=== PATIENT | female | born 1935 | race Caucasian/White ===

== ENCOUNTER → 2016-10-27 | Outpatient (CLI) | payer OTHER ==
[~2016-10-27] MED LIST: ASPEC325 PO; ASPI81TA28 PO; CHOL1000 PO; CRD30 PO; HYZ/50125 PO; LEVO-217 PO; LEVO125T4 PO; OXYC-57 PO; PANT40TA PO; RXC5 PO
--- NOTE | 2016-10-28 14:34 | MAMMOGRAPHY REPORT ---
BILATERAL DIGITAL SCREENING MAMMOGRAM TOMOSYNTHESIS WITH CAD: 10/27/2016 CLINICAL HISTORY: Routine screening. TECHNIQUE: Breast tomosynthesis in addition to standard 2D mammography was performed. Current study was also evaluated with a Computer Aided Detection (CAD) system. COMPARISON: Comparison is made to exams dated: 09/01/2015 mammogram, 08/25/2015 mammogram, 08/19/2014 ma mmogram, 06/12/2013 mammogram - [facility], 03/14/2006 mammogram, and 02/18/2005 lona mogram. BREAST COMPOSITION: There are scattered areas of fibroglandular density in both breasts. FINDINGS: There are numerous similar appearing groupings of coarse heterogeneous microcalcifications scattered bilaterally. No new suspicious spiculated or irregular mass, architectural distortion or c luster of suspicious microcalcifications is seen. IMPRESSION: ACR BI-RADS CATEGORY 1: NEGATIVE There is no mammographic evidence of malignancy. A 1 year screening mammogram is recommended. The pa tient will receive written notification of the results. Approximately 10% of breast cancers are not detected with mammography. A negative mammographic report should not delay biopsy if a clinically suggestive mass is present. Katerin Lynn M.D. ay/:10/27/2016 16:41:46 Watch Adjuster: Kurt LEÓN(R)(M), [facility] letter sent: Normal 1/2 BI-RADS Code: ACR BI-RADS Category 1: Negative
== END | disposition home or self-care (01) ==
LOC: C.MAMM 16:16
PROVIDERS: ATTEND Family Medicine
DX: Z12.31 Encounter for screening mammogram for malignant neoplasm of breast (principal)

== ENCOUNTER 2016-11-19 08:27 | Inpatient (IN) | payer OTHER ==
[2016-11-09 09:47] VITALS: BMI 25.0
--- NOTE | 2016-11-09 10:24 | PAT Medication Instructions ---
Service Date Nov 09, 2016. Current Home Medication List Aspirin (Aspirin Ec), 81 MG PO NOON Cholecalciferol (Vitamin D3), 1 TAB PO NOON Hctz/Losartan (Hyzaar 12.5MG/50MG), 1 TAB PO NOON Levothyroxine Sodium (Levothyroxine Sodium), 1 TAB PO QAM Medication Instructions For Your Scheduled Surgery - Check with surgeon for instructions: Aspirin (Aspirin Ec), 81 MG PO NOON - Hold the following medications the morning of surgery: Hctz/Losartan (Hyzaar 12.5MG/50MG), 1 TAB PO NOON Cholecalciferol (Vitamin D3), 1 TAB PO NOON - Take the following medications the morning of surgery with a sip of water: Levothyroxine Sodium (Levothyroxine Sodium), 1 TAB PO QAM If you have any questions please call us at [phone] (Margie Anna PA-C) or [phone] or [phone]
--- NOTE | 2016-11-09 11:23 | DIAGNOSTIC IMAGING REPORT ---
CHEST PREADMISSION(PA/LAT) HISTORY:81 yearsFemalepreadmission study. COMPARISON: Chest radiograph 03/26/2015 TECHNIQUE: Frontal and lateral views of the chest. FINDINGS: Cardiomediastinal and hilar silhouettes are within normal limits. There is atherosclerosis of the aorta. No pneumothorax, pleural effusion, focal airspace consolidation or overt edema. There is minimal linear subsegmental atelectasis and/or pleural parenchymal scarring of the lingula. There is gentle convex-right curvature of the midthoracic spine. Degenerative changes are seen within the bilateral shoulders. IMPRESSION: No acute cardiopulmonary process. The above report was generated using voice recognition software. It may contain grammatical, syntax or spelling errors. Electronically signed by: Roshan Sotomayor M.D. 11/09/2016 11:21 AM Dictated Date/Time: 11/09/2016 11:20 AM
[2016-11-09 11:30] LABS: BASO % 0.3 %; BASO ABS # 0.02 K/uL (0-0.2); COMPLETE YES; EOS % 1.4 %; HEMATOCRIT 34.5 % (37-47); IG% 0.2 %; LYMPH % 21.7 %; LYMPH ABS # 1.36 K/uL (1.2-3.4); MEAN CELL VOLUME 93.5 fL (80-100); MEAN CORPUSCULAR HEMOGLOBIN 32.2 pg (25-34); MEAN CORPUSCULAR HGB CONC 34.5 g/dl (32-36); MEAN PLATELET VOLUME 10.5 fL (7.4-10.4); MONO % 8.9 %; NEUT % 67.5 %; PLATELET COUNT 235 K/uL (130-400); RED BLOOD COUNT 3.69 M/uL (4.2-5.4); WHITE BLOOD COUNT 6.26 K/uL (4.8-10.8)
[2016-11-09 11:37] LABS: BUN/CREATININE RATIO 19.1 (10-20); CALCIUM 9.9 mg/dl (8.5-10.1); CREATININE 0.76 mg/dl (0.60-1.20)
[2016-11-09 11:39] LABS: INR 1.1 (0.9-1.1); PARTIAL THROMBOPLASTIN RATIO 1.1
[2016-11-09 12:01] LABS: URINE APPEARANCE CLEAR (CLEAR); URINE BILIRUBIN NEG (NEG); URINE COLOR YELLOW; URINE NITRITE NEG (NEG); URINE SPECIFIC GRAVITY 1.017 (1.000-1.030); UROBILINOGEN NEG (NEG)
[2016-11-09 12:08] LABS: MANUAL MICROSCOPIC REQUIRED? NO; REVIEW REQ? NO
[~2016-11-19] VITALS: Ht 172.7 cm; Wt 74.6 kg
[2016-11-19] VITALS (7 sets, daily range): BP systolic 114–148; BP diastolic 56–80; PULSE 60–76; TEMP 36.4–36.8; O2SAT 94–100; Ht 172.7 cm; Wt 74.6 kg
[~2016-11-19 08:27] MED LIST changes: +ACETAMINOPHEN 500 MG TAB PO SCH; -ASPEC325 PO; +BUPIVACAINE 0.25% 30 ML VIAL ONE; +BUPIVACAINE 0.5 % 5 MG/1 ML PF 10ML VIAL ONE; +CEFAZOLIN 2000 MG/60 ML D5W 60 ML IV SCH; -CRD30 PO; +FAMOTIDINE 20 MG TAB PO SCH; +GABAPENTIN 300 MG CAP PO SCH; +LACTATED RINGER'S 1000ML 1,000 ML IV SCH; +LACTATED RINGER'S 1000ML IV SCH; -LEVO-217 PO; -OXYC-57 PO; -PANT40TA PO; +ROPIVACAINE 5MG/ML 30 ML 150 MG, BUPIVACAINE/EPINEPHR 0.5% MPF 30 ML, KETOROLAC TROMETH... INFIL SCH; -RXC5 PO
[2016-11-19] MEDS ORDERED: HYZ/50125 PO (08:50)
--- NOTE | 2016-11-19 09:29 | History & Physical Bridge Note ---
H&P Re-Evaluation Bridge Note: I have examined the patient, reviewed the History & Physical and in the interval since the performance of the History & Physical I have noted the following changes of clinical significance: No changes noted
--- NOTE | 2016-11-19 09:30 | History and Physical ---
History & Physical Date Nov 19, 2016. Chief Complaint Osteoarthritis Left Knee History of Present Illness The patient is a 81 year old female with complaints of chronic left knee pain Past Medical/Surgical History hypertension, hypothyroid Additional History Hepatic Disease: No Endocrine Disorder: No Kidney Disease: No Hypertension: No Heart Disease: No Bleeding Tendencies: No Infectious Diseases: No Allergies Coded Allergies: Latex1 -Allergic Contact Dermititis (Verified Allergy, Unknown, ITCHING, ) POLLEN (Verified Allergy, Unknown, HAYFEVER, 11/19/16) Home Medications Scheduled Aspirin (Aspirin Ec), 81 MG PO NOON Cholecalciferol (Vitamin D3), 1 TAB PO NOON Levothyroxine Sodium (Levothyroxine Sodium), 1 TAB PO QAM Scheduled PRN Hctz/Losartan (Hyzaar 12.5MG/50MG), 1 TAB PO BID PRN for daily Physical Examination Skin: warm/dry, no rash Eyes: normal inspection, EOMI, sclerae normal ENT: normal ENT inspection, pharynx normal Head: normocephalic, atraumatic Neck: supple, no adenopathy, trachea midline Respiratory/Chest: lungs clear, normal breath sounds, no respiratory distress Cardiovascular: regular rate, rhythm, no edema, no murmur Abdomen / GI: normal bowel sounds, non tender Back: normal inspection Extremities: normal inspection, normal range of motion Neurologic/Psych: no motor/sensory deficits, alert, normal reflexes, oriented x 3 Diagnosis Osteoarthritis Left Knee Plan of Treatment Left total knee
[2016-11-19] MEDS ORDERED: FENTANYL CITRATE INJ 50 MCG/1 ML 2 ML VIAL ONE ×2 (10:30→13:03)
[2016-11-19] MEDS ORDERED: MIDAZOLAM HCL 1 MG/ML 2ML VIAL ONE (10:30)
[2016-11-19] MEDS ORDERED: FENTANYL CITRATE INJ 50 MCG/1 ML 2 ML VIAL IV PRN (11:15)
[2016-11-19] MEDS ORDERED: ATROPINE SULFATE 0.1 MG/ML 5ML SYR IV PRN (11:15)
[2016-11-19] MEDS ORDERED: HYDROmorphone INJ 1 MG/ML SYR IV PRN (11:15)
[2016-11-19] MEDS ORDERED: EpHEDrine SULFATE INJ 50 MG/ML AMP IV PRN (11:15)
[2016-11-19] MEDS ORDERED: DEXAMETHASONE SOD INJ 4 MG/ML VIAL IV PRN (11:15)
[2016-11-19] MEDS ORDERED: ONDANSETRON INJ 2 MG/ML 2 ML VIAL IV PRN ×2 (11:15→14:15)
[2016-11-19] MEDS: TRANEXAMIC ACID INJ 1,000 MG in SODIUM CHLORIDE 0.9% 100ML 100 ML IV SCH ×2 (11:36→16:19)
[2016-11-19] MEDS ORDERED: ORTHO JOINT ANESTHETIC ONE (12:07)
[2016-11-19] MEDS ORDERED: BACITRACIN 50000 UNIT VIAL ONE (12:07)
[2016-11-19] MEDS ORDERED: NEOSTIGMINE METHYLSULFATE 5 MG/5 ML SYR ONE (13:48)
[2016-11-19] MEDS ORDERED: GLYCOPYRROLATE INJ 0.2 MG/ML VIAL ONE (13:48)
[2016-11-19] MEDS ORDERED: PROPOFOL IV EMULSION 10 MG/ML 20 ML VIAL IV ONE (13:48)
[2016-11-19] MEDS ORDERED: ONDANSETRON INJ 2 MG/ML 2 ML VIAL ONE (13:48)
[2016-11-19] MEDS ORDERED: ROCURONIUM BROMIDE 10 MG/ML 5 ML VIAL ONE (13:48)
[2016-11-19] MEDS ORDERED: LIDOCAINE HCL 2% 2 ML VIAL (20MG/ML) ONE (13:48)
[2016-11-19] MEDS ORDERED: EpHEDrine SULFATE INJ 50 MG/ML AMP ONE (13:48)
--- NOTE | 2016-11-19 14:02 | [facility] Post Operative Brief Note ---
Immediate Operative Summary Operative Date Nov 19, 2016. Pre-Operative Diagnosis Left knee Osteoarthritis Post-Operative Diagnosis same Procedure(s) Performed Left Total Knee Arthroplasty Surgeon Dr. Bryce Handy Water Pollution Specialist Surgeon(s) Prashant Abarca PA-C Estimated Blood Loss 20ML Findings as above Specimens a. Left knee bone and tissue Complication(s) None Disposition Recovery Room / PACU
[2016-11-19] MEDS ORDERED: SOD PHOSPHATE/SOD BIPHOSPHATE ENEMA 132 ML BTL PR PRN (14:15)
[2016-11-19] MEDS ORDERED: METOCLOPRAMIDE HCL INJ 5 MG/ML 2 ML VIAL IV PRN (14:15)
[2016-11-19] MEDS ORDERED: OXYCODONE HCL IR 5 MG TAB (IMMEDIATE RELEASE) PO PRN (14:15)
[2016-11-19] MEDS ORDERED: SILVER SULFADIAZINE 1% CR 50 GM JAR EXT PRN (14:15)
[2016-11-19] MEDS ORDERED: LOSARTAN/HCTZ 50-12.5 EA TAB PO PRN (14:15)
[2016-11-19] MEDS ORDERED: MoRPHine SULFATE 2 MG/ML CARP IV PRN (14:15)
[2016-11-19] MEDS ORDERED: BISACODYL 10 MG SUPP PR PRN (14:15)
[2016-11-19] MEDS ORDERED: MAGNESIUM HYDROXIDE SUSP 30 ML UDC PO PRN (14:15)
--- NOTE | 2016-11-19 14:43 | DIAGNOSTIC IMAGING REPORT ---
LEFT KNEE 1 OR 2 VIEWS ROUTINE CLINICAL HISTORY: AP/LATERAL IN PACU LEFT KNEE COMPARISON: None. DISCUSSION: Anatomic alignment status post total left knee replacement. Good contact between prosthetic and underlying bone. Surgical drains are in position. Expected soft tissue postoperative change IMPRESSION: Anatomic alignment status post total left knee replacement The above report was generated using voice recognition software. It may contain grammatical, syntax or spelling errors. Electronically signed by: Joselito Dash M.D. 11/19/2016 2:42 PM Dictated Date/Time: 11/19/2016 2:42 PM
--- NOTE | 2016-11-19 14:52 | Anesthesiology Progress Note ---
Anesthesia Post Op Note Date & Time Nov 19, 2016 at 14:52 Vital Signs Pain Intensity: 0 Vital Signs Past 12 Hours Date Time Temp Pulse Resp B/P (MAP) Pulse Ox O2 Delivery O2 Flow Rate FiO2 11/19/16 14:50 36.3 59 16 130/57 100 Nasal Cannula 2 11/19/16 14:40 56 16 131/58 99 Nasal Cannula 2 11/19/16 14:30 57 16 110/72 100 Nasal Cannula 2 11/19/16 14:20 57 16 139/62 100 Oxymask 5 11/19/16 14:11 36.2 52 16 148/61 100 Oxymask 10 11/19/16 12:11 66 20 140/72 (94) 100 Mask 10 11/19/16 08:51 36.8 76 16 133/80 94 Room Air Notes Mental Status: alert / awake / arousable, participated in evaluation Pt Amnestic to Procedure: Yes Nausea / Vomiting: adequately controlled Pain: adequately controlled Airway Patency, RR, SpO2: stable & adequate BP & HR: stable & adequate Hydration State: stable & adequate Anesthetic Complications: no major complications apparent
[2016-11-19] MEDS ORDERED: NURSING VERBAL MED ORDER ONE (16:15)
[2016-11-19] MEDS: SODIUM CHLORIDE 0.9% 1000ML 1,000 ML IV SCH (16:41)
[2016-11-19] MEDS: KETOROLAC TROMETHAMINE 15 MG/ML VIAL IV. SCH (18:11)
[2016-11-19] MEDS: CEFAZOLIN IV 1,000 MG in DEXTROSE 5% 50ML 50 ML IV SCH (21:07)
[2016-11-19] MEDS: LOSARTAN/HCTZ 50-12.5 EA TAB PO SCH (21:08)
[2016-11-19] MEDS: DOCUSATE SODIUM 100 MG CAP PO SCH (21:08)
[2016-11-19] MEDS: SENNA 8.6 MG TAB PO SCH (21:10)
[2016-11-19] MEDS: ASPIRIN 325 MG ECTAB PO SCH (21:11)
[2016-11-19] MEDS: ACETAMINOPHEN IV 1,000 MG in EMPTY BAG 0 ML IV SCH (21:53)
[2016-11-20] VITALS (7 sets, daily range): BP systolic 116–137; BP diastolic 66–77; PULSE 64–89; TEMP 36.4–36.9; O2SAT 92–99
[2016-11-20] MEDS: KETOROLAC TROMETHAMINE 15 MG/ML VIAL IV. SCH ×5 (00:03→23:47)
[2016-11-20] MEDS: CEFAZOLIN IV 1,000 MG in DEXTROSE 5% 50ML 50 ML IV SCH (03:51)
[2016-11-20] MEDS: SODIUM CHLORIDE 0.9% 1000ML 1,000 ML IV SCH ×2 (03:51→09:44)
[2016-11-20] MEDS: ACETAMINOPHEN IV 1,000 MG in EMPTY BAG 0 ML IV SCH ×3 (06:09→22:24)
[2016-11-20] MEDS: LEVOTHYROXINE 125 MCG TAB PO SCH (06:10)
[2016-11-20 06:26] LABS: HEMATOCRIT 29.3 % (37-47); MEAN CELL VOLUME 92.1 fL (80-100); MEAN CORPUSCULAR HEMOGLOBIN 30.5 pg (25-34); MEAN CORPUSCULAR HGB CONC 33.1 g/dl (32-36); PLATELET COUNT 242 K/uL (130-400); RED BLOOD COUNT 3.18 M/uL (4.2-5.4); WHITE BLOOD COUNT 11.82 K/uL (4.8-10.8)
[2016-11-20 06:58] LABS: BUN/CREATININE RATIO 12.9 (10-20); CALCIUM 8.9 mg/dl (8.5-10.1); CREATININE 0.89 mg/dl (0.60-1.20)
--- NOTE | 2016-11-20 07:56 | OPERATIVE REPORT ---
DATE OF OPERATION: 11/19/2016 PREOPERATIVE DIAGNOSIS: Primary osteoarthritis of the left knee. POSTOPERATIVE DIAGNOSIS: Same. PROCEDURE: Left total knee arthroplasty. SURGEON: Dr. Bryce Handy. CDL PROGRAM COORDINATOR: Prashant Abarca PA-C, whose assistance was necessary for positioning the leg and helping with retraction. ANESTHESIA: General with a left adductor nerve block. COMPLICATIONS: None. CONDITION: Stable to PACU. IMPLANTS USED: I used a [employer] Vanguard left total knee arthroplasty system with a size 70 femur, 71 tibia, size 10 posterior stabilized bearing and a size 31 x 8 patella. All complements were cemented with Palacos-G cement. INDICATIONS: Marcelina is a pleasant 81-year-old female who presented to my office with chronic left knee pain. X-rays and clinical examination were diagnostic for primary osteoarthritis of the left knee. After failing conservative treatment, she elected to undergo a left total knee arthroplasty. DESCRIPTION OF PROCEDURE: [facility]19/2016[facility] She was seen in the preoperative holding area and the operative extremity was identified and signed. She was given appropriate antibiotics and a left adductor nerve block. She refused a spinal anesthetic. She was given preoperative antibiotics and TXA. She was taken back to the operating room, laid on the table in supine position and put under general anesthesia. The left knee was then prepped and draped in sterile fashion. Time-out was done and the patient and operative extremity was properly identified. A longitudinal incision was made directly over the patella. Dissection was taken down to the extensor mechanism and a medial parapatellar arthrotomy was used. The medial retinaculum was released and the superior synovium was excised. The knee was then flexed. ACL, PCL and meniscus were removed. A drill was sent down the center of the femoral canal and following was an intramedullary sherman. Off that sherman, a distal femoral cutting block was placed and the distal femur was resected at 5 degrees of valgus. A 12 mm was resected off the distal femur. A posterior referencing guide was then used to measure the size of the femur and the femur measured to be a size 70. Two drill holes were placed in 3 degrees of external rotation and a 4-in-1 cutting block was impacted into place. Anterior, posterior and chamfer cuts were then made. A box resection guide was then impacted on the distal femur and the box was resected for the posterior stabilizing component. The proximal tibia was exposed. A drill was sent down the center of the tibial canal followed by an intramedullary sherman. Off that sherman, a proximal tibial resection guide was placed and 2 mm was resected off the low medial side. The tibia was then measured to be a size 71. It was set in the appropriate rotation, drilled and then punched. The posterior aspect of the knee was opened up and any soft tissue remnants were removed and posterior osteophytes were also removed. Trial components were placed. The knee was brought through a full range of motion and felt to be stable. The patella was then everted and 8 mm was resected off the posterior aspect. The patella measured to be a size 31 and 3 peg holes were drilled. Trial components were then removed. The knee was then irrigated. Surrounding soft tissues were injected with 100 mL of an orthopedic pain control cocktail. The final components were then cemented in place with Palacos-G cement. Once cement had hardened, a size 10 posterior stabilized poly was snapped into place. Anterior bar was locked. The knee was then irrigated with 3 liters of normal saline solution with bacitracin. Two drains were placed. The extensor mechanism was closed with #2 FiberWire suture in the superior medial aspect and #1 Vicryl, both proximally and distally. The incision was then closed with 2-0 Vicryl suture, 3-0 V-Loc suture and kashmir. She was then placed in a soft compressive dressing, extubated, transferred to a [facility] and taken to the postanesthesia care unit in stable condition. She tolerated the procedure well. I attest to the content of the Intraoperative Record and any orders documented therein. Any exception s are noted below.
[2016-11-20] MEDS: DOCUSATE SODIUM 100 MG CAP PO SCH ×2 (08:23→20:35)
[2016-11-20] MEDS: LOSARTAN/HCTZ 50-12.5 EA TAB PO SCH ×2 (08:23→20:35)
[2016-11-20] MEDS: CHOLECALCIFEROL 1000 INTER.UNIT TAB PO SCH (08:24)
[2016-11-20] MEDS: ASPIRIN 325 MG ECTAB PO SCH ×2 (08:24→20:35)
[2016-11-20] MEDS: MULTIVITAMIN TAB PO SCH (08:24)
[2016-11-20] MEDS: PANTOprazole SOD 40 MG TAB PO SCH (08:24)
--- NOTE | 2016-11-20 09:58 | PROGRESS NOTE ---
DATE: 11/20/2016 DATE: 11/20/2016. CHIEF COMPLAINT: Status post left total knee arthroplasty postop day #1. PROGRESS: Marcelina was seen and examined at bedside today. Overall, she is doing very well. She really has no pain in the knee. She has been up and ambulating, has no complaints. PHYSICAL EXAMINATION: LEFT KNEE: The dressing is clean and dry and the drain is to suction. She has active dorsiflexion and plantarflexion of her left ankle. Sensation is intact throughout. LABORATORY DATA: She has an H&H today of 9.7 and 29.3. Her glucose is 138. Her vital signs are all stable on room air. She is voiding on her own. X-rays postoperatively of the left knee show the prosthesis to be in anatomical alignment without any evidence of fracture, dislocation or loosening. IMPRESSION: Status post left total knee arthroplasty postop day #1. PLAN: At this point, she is doing very well. Will continue Oxycodone as needed for pain control. She is on aspirin for DVT prophylaxis and we are planning to discharge to home tomorrow.
[2016-11-20] MEDS: SENNA 8.6 MG TAB PO SCH (21:00)
[2016-11-21] MEDS: ACETAMINOPHEN IV 1,000 MG in EMPTY BAG 0 ML IV SCH (05:35)
[2016-11-21] MEDS: LEVOTHYROXINE 125 MCG TAB PO SCH (05:35)
[2016-11-21] MEDS: KETOROLAC TROMETHAMINE 15 MG/ML VIAL IV. SCH (05:46)
[2016-11-21 06:17] VITALS: BP 136/76; PULSE 82; TEMP 36.5; O2SAT 97
[2016-11-21] MEDS: CHOLECALCIFEROL 1000 INTER.UNIT TAB PO SCH (07:09)
[2016-11-21] MEDS: MULTIVITAMIN TAB PO SCH (07:10)
[2016-11-21] MEDS: PANTOprazole SOD 40 MG TAB PO SCH (07:10)
[2016-11-21] MEDS: LOSARTAN/HCTZ 50-12.5 EA TAB PO SCH (07:10)
[2016-11-21] MEDS: ASPIRIN 325 MG ECTAB PO SCH (07:10)
[2016-11-21] MEDS: DOCUSATE SODIUM 100 MG CAP PO SCH (07:10)
[2016-11-21] MEDS ORDERED: ASPEC325 PO (08:14)
[2016-11-21] MEDS ORDERED: RXC5 PO (08:14)
--- NOTE | 2016-11-21 08:15 | Discharge Instructions ---
Discharge Instructions Date of Service Nov 21, 2016. Admission Reason for Admission: Left Knee Osteoarthritis Discharge Discharge Diagnosis / Problem: Left total knee Discharge Goals Goal(s): Decrease discomfort, Improve function Activity Recommendations Activity Limitations: as noted below . Instructions / Follow-Up Instructions / Follow-Up Activity and Therapy Recommendations: * If you are using [facility] then Physical Therapy will be provided until they feel you are ready to start Outpatient Physical Therapy. If you are not using a Home Health agency then Outpatient Physical Therapy should start about 3-5 days from your day of surgery. Therapy will last about 6-10 weeks * It is important not to put a pillow under your knee when you are relaxing or sleeping. It is just as important to make sure you are getting your knee perfectly straight as it is to regain your knee bend. * You were shown a series of exercises in the hospital. Do these exercises three times each day including the exercises you were shown in physical therapy. * Get up and walk several times each day. For the first four weeks, try not to stand or walk for more than one hour at a time. If you do stand or walk for more than one hour, you will not hurt anything, but your leg will likely swell. * As you feel comfortable, you may change from the walker or crutches to a cane and then to independent walking. Medications: * Narcotic You will likely be sent home from the hospital with a prescription for the narcotic pain medication that worked best throughout your stay. * Aspirin Most patients will be required to take Aspirin 325mg twice a day for 6 weeks after surgery. This is obtained [id number] and a prescription is not necessary. * Other medications may be prescribed for specific circumstances. If you have any questions, please call the office at . * Resume previous home medications unless otherwise instructed TEDs/Elastic Stockings: The white elastic stockings help limit swelling and prevent blood clots from forming in your legs.~ The more you wear them, the more they work. Wear them for six weeks. Showering: You may shower 5 days from the day of surgery. Let the soapy shower water run over the kashmir. Do not scrub or soak the incision. Things To Watch For: * Drainage from the incision site that occurs more than one week after your surgery. * Increased redness at the incision site. * Fever above 102 degrees Fahrenheit. * Unusual chest pain or shortness of breath. * Call [facility] at with any of the above problems Follow-Up Visit: Follow-up with Dr. Handy 2-3 weeks after your day of surgery. An appointment was probably scheduled when you signed-up for surgery in the office. If you have any questions call Office Instructions: More detailed instructions as well as Frequently Asked Questions were provided in a folder by our office when you signed-up for surgery. Please review these instructions when you get home. If you have any further questions or concerns, please feel free to call the office at [phone] Current Hospital Diet Patient's current hospital diet: Regular Diet Discharge Diet Recommended Diet: Regular Diet Procedures Procedures Performed: Left Total Knee Arthroplasty Pending Studies Studies pending at discharge: no Medical Emergencies . Who to Call and When: Medical Emergencies: If at any time you feel your situation is an emergency, please call [phone] immediately. . Non-Emergent Contact Non-Emergency issues call your: Surgeon Call Non-Emergent contact if: wound has increased drainage, wound has increased redness . "Provider Documentation" section prepared by Bryce Handy. . VTE Core Measure Inpt VTE Proph given/why not?: Other Anticoagulation (Aspirin 325 twice a day for 6 weeks)
[2016-11-21 08:52] VITALS: BP 136/76; PULSE 82; O2SAT 97
[2016-11-21 09:40] VITALS: BP 136/76; PULSE 82; TEMP 36.5; O2SAT 97
--- NOTE | 2016-11-21 12:41 | PROGRESS NOTE ---
DATE: 11/21/2016 CHIEF COMPLAINT: Status post left total knee arthroplasty, postop day #2. PROGRESS: Marcelina was seen and examined at bedside today. Overall, she is doing very well. She has not been taking any of the narcotic pain medications yet. She has been working well with physical therapy and has no complaints. PHYSICAL EXAMINATION: LEFT KNEE: The dressing has been changed. The drain has been pulled. She has her knee out in full extension. She is neurovascularly intact. IMPRESSION: Status post left total knee arthroplasty, postop day #2. PLAN: At this point, she is doing very well. She has not needed any of the pain medications. She is working well with physical therapy. We will discharge her to home later this morning with [facility].
--- NOTE | 2016-11-21 16:24 | DISCHARGE SUMMARY ---
DISCHARGE DIAGNOSIS: Primary osteoarthritis of the left knee. PROCEDURE: Left total knee arthroplasty on 11/19/[address] Bryce Handy. DISCHARGE INSTRUCTIONS: 1. Aspirin 325 mg twice a day for 6 weeks. 2. Oxycodone 5 mg every 4 hours as needed for pain. 3. Vitamin D3 1000 units daily. 4. Hyzaar 12.5/50 mg twice a day. 5. Synthroid 125 mcg daily. 6. TEJA hose stockings for 6 weeks. 7. Follow up with Dr. Handy in 2 weeks. 8. Call the office of Dr. Handy with any questions or concerns. HOSPITAL COURSE: Marcelina is a pleasant 81-year-old female who presented to my office with complaints of chronic left knee pain. X-rays and physical examination were diagnostic for primary osteoarthritis of the left knee. After failing extensive conservative treatment, she elected to undergo a left total knee arthroplasty. On 11/19/2016 she arrived at [facility] and underwent a left knee replacement without complications. She had a spinal anesthetic and a left adductor nerve block. Postoperatively, she was started on aspirin 325 mg twice a day and discharged to general orthopedic floor. Her hospital course was uneventful. On postop day #1, her H&H was stable at 9.7 and 29.3. Her pain was well controlled. She was able to work well with physical therapy. On postop day #2, the dressing was changed and drain was pulled. She continued to work well with physical therapy and she was subsequently discharged to home with [facility] the above instructions.
== END 2016-11-21 11:00 | disposition home health service (06) | DRG 470 ==
LOC: C.ACU 08:27 → C.3E 09:15 → EEVIPCON 09:15 → ENRESERV 15:20
PROVIDERS: ADMIT Orthopaedic Surgery; ATTEND Orthopaedic Surgery
PROC: 0SRD0J9 Replacement of Left Knee Joint with Synthetic Substitute, Cemented, Open Approach (ICD-10-PCS; principal; 2016-11-19 11:00)
DX: M17.12 Unilateral primary osteoarthritis, left knee (principal); I10 Essential (primary) hypertension; E03.9 Hypothyroidism, unspecified; E66.9 Obesity, unspecified; Z68.25 Body mass index [BMI] 25.0-25.9, adult; Z79.82 Long term (current) use of aspirin; Z79.899 Other long term (current) drug therapy

== ENCOUNTER 2017-06-05 07:30 | Emergency (ER) | payer OTHER ==
[~2017-06-05] VITALS: Ht 171.5 cm; Wt 88.0 kg
[~2017-06-05 07:30] MED LIST changes: -ACETAMINOPHEN 500 MG TAB PO SCH; +ASPEC325 PO; -ASPI81TA28 PO; -BUPIVACAINE 0.25% 30 ML VIAL ONE; -BUPIVACAINE 0.5 % 5 MG/1 ML PF 10ML VIAL ONE; -CEFAZOLIN 2000 MG/60 ML D5W 60 ML IV SCH; -FAMOTIDINE 20 MG TAB PO SCH; -GABAPENTIN 300 MG CAP PO SCH; -LACTATED RINGER'S 1000ML 1,000 ML IV SCH; -LACTATED RINGER'S 1000ML IV SCH; -LEVO125T4 PO; +LEVO125T5 PO; -ROPIVACAINE 5MG/ML 30 ML 150 MG, BUPIVACAINE/EPINEPHR 0.5% MPF 30 ML, KETOROLAC TROMETH... INFIL SCH; +RXC5 PO
[2017-06-05 07:35] VITALS: TEMP 37.1; Ht 171.5 cm; Wt 88.0 kg
[2017-06-05] MEDS ORDERED: SODIUM CHLORIDE 0.9% 1000ML 1,000 ML IV STA ×2 (07:41→08:38)
[2017-06-05] MEDS ORDERED: ALBUT/IPRATROP 3MG/0.5MG NEB 3 ML VIAL INH STA (07:41)
[2017-06-05] MEDS ORDERED: SODIUM CHLORIDE 0.65% NA SOLN 45 ML (OCEAN) ONE (07:45)
--- NOTE | 2017-06-05 07:55 | EMERGENCY ROOM VISIT NOTE ---
History Report prepared by Valdemar: Marivel Lanza Under the Supervision of: Dr. Milo Hoskins M.D. First contact with patient: 07:40 Chief Complaint: COUGH Stated Complaint: COUGH History of Present Illness The patient is an 82 year old female who presents to the Emergency Room with complaints of a worsening cough that began a few days ago. The patient states that she has also been congested and experiencing body aches. She denies any diarrhea or nausea. She reports that she has been gaging clear mucous. The patient denies being around anyone with similar symptoms. She denies being a smoker. Source of History: patient Onset: a few days ago Position: other (global) Quality: other (cough) Timing: worsening Associated Symptoms: No nausea, No diarrhea Note: Associated symptoms include body aches. Review of Systems See HPI for pertinent positives and negatives. A total of ten systems were reviewed and were otherwise negative. Past Medical & Surgical Medical Problems: (1) Osteoarthritis of knee Family History Patient reports no known family medical history. No pertinent family history. Social History Smoking Status: Never Smoker Smokeless Tobacco Use: No Alcohol Use: none Drug Use: none Housing Status: lives alone Occupation Status: retired Current/Historical Medications Scheduled Aspirin (Aspirin Ec), 81 MG PO DAILY Cholecalciferol (Vitamin D3), 4,000 UNITS PO DAILY Hctz/Losartan (Hyzaar 25MG/100MG), 1 TAB PO DAILY Levothyroxine Sodium (Levothyroxine Sodium), 125 MCG PO QAM Oseltamivir Phosphate (Tamiflu), 75 MG PO BID Allergies Coded Allergies: Latex1 -Allergic Contact Dermititis (Verified Allergy, Unknown, ITCHING, ) POLLEN (Verified Allergy, Unknown, HAYFEVER, 06/05/17) Physical Exam Vital Signs Date Time Temp Pulse Resp B/P (MAP) Pulse Ox O2 Delivery O2 Flow Rate FiO2 06/05/17 10:34 98 20 157/87 97 06/05/17 08:32 109 16 143/85 100 Nebulizer 7.0 06/05/17 08:20 99 06/05/17 08:18 94 Room Air 06/05/17 07:35 37.1 112 18 165/76 95 Room Air Physical Exam GENERAL: Awake, alert, uncomfortable, in no distress HENT: Dry cracked mucous membranes. Normocephalic, atraumatic. Mild injection in posterior oropharynx, no edema. No tongue elevation or trismus. EYES: Normal conjunctiva. Sclera non-icteric. NECK: Supple. No nuchal rigidity. FROM. No JVD. RESPIRATORY: Scant scattered wheezes, otherwise clear. CARDIAC: Irregular rate and rhythm. Extremities warm and well perfused. Pulses equal. ABDOMEN: Soft, non-distended. No tenderness to palpation. No rebound or guarding. No masses. RECTAL: Deferred. MUSCULOSKELETAL: Chest examination reveals no tenderness. The back is symmetrical on inspection without obvious abnormality. There is no CVA tenderness to palpation. No joint edema. LOWER EXTREMITIES: Calves are equal size bilaterally and non-tender. No edema. No discoloration. NEURO: Normal sensorium. No sensory or motor deficits noted. SKIN: No rash or jaundice noted. Medical Decision & Procedures ER Provider Diagnostic Interpretation: Radiology results as stated below per my review and radiologist interpretation: CHEST ONE VIEW PORTABLE CLINICAL HISTORY: 82 years-old Female presenting with CHEST PAIN. TECHNIQUE: Portable upright AP view of the chest was obtained. COMPARISON: 11/09/2016. FINDINGS: Atherosclerosis of the aortic arch. Cardiac silhouette normal in size. Persistent nodularity at the right paramediastinal lung base, which may correlate with the small mediastinal lymph nodes adjacent to the IVC on prior CT from 02/13/2014. Lungs and pleural spaces otherwise clear. Degenerative changes of the thoracic spine. Upper abdomen normal. IMPRESSION: 1. No acute cardiopulmonary disease. Electronically signed by: Diego Keene M.D. 06/05/2017 8:17 AM Dictated Date/Time: 06/05/2017 8:15 AM Laboratory Results 06/05/17 08:04 Red Blood Count 3.51, Mean Corpuscular Volume 94.9, Mean Corpuscular Hemoglobin 30.8, Mean Corpuscular Hemoglobin Concent 32.4, Mean Platelet Volume 10.0, Neutrophils (%) (Auto) 61.5, Lymphocytes (%) (Auto) 16.9, Monocytes (%) (Auto) 16.7, Eosinophils (%) (Auto) 3.7, Basophils (%) (Auto) 0.6, Neutrophils # (Auto ) 3.14, Lymphocytes # (Auto) 0.86, Monocytes # (Auto) 0.85, Eosinophils # (Auto ) 0.19, Basophils # (Auto) 0.03 06/05/17 08:04 Test 06/05/17 08:04 06/05/17 08:25 White Blood Count 5.10 K/uL (4.8-10.8) Red Blood Count 3.51 M/uL (4.2-5.4) Hemoglobin 10.8 g/dL (12.0-16.0) Hematocrit 33.3 % (37-47) Mean Corpuscular Volume 94.9 fL (80-100) Mean Corpuscular Hemoglobin 30.8 pg (25-34) Mean Corpuscular Hemoglobin Concent 32.4 g/dl (32-36) Platelet Count 225 K/uL (130-400) Mean Platelet Volume 10.0 fL (7.4-10.4) Neutrophils (%) (Auto) 61.5 % Lymphocytes (%) (Auto) 16.9 % Monocytes (%) (Auto) 16.7 % Eosinophils (%) (Auto) 3.7 % Basophils (%) (Auto) 0.6 % Neutrophils # (Auto) 3.14 K/uL (1.4-6.5) Lymphocytes # (Auto) 0.86 K/uL (1.2-3.4) Monocytes # (Auto) 0.85 K/uL (0.11-0.59) Eosinophils # (Auto) 0.19 K/uL (0-0.5) Basophils # (Auto) 0.03 K/uL (0-0.2) RDW Standard Deviation 47.7 fL (36.4-46.3) RDW Coefficient of Variation 13.8 % (11.5-14.5) Immature Granulocyte % (Auto) 0.6 % Immature Granulocyte # (Auto) 0.03 K/uL (0.00-0.02) Anion Gap 8.0 mmol/L (3-11) Est Creatinine Clear Calc Drug Dose 70.7 ml/min Estimated GFR () 90.2 Estimated GFR (Non- 77.8 BUN/Creatinine Ratio 11.6 (10-20) Calcium Level 8.4 mg/dl (8.5-10.1) Total Bilirubin 1.4 mg/dl (0.2-1) Direct Bilirubin 0.5 mg/dl (0-0.2) Aspartate Amino Transf (AST/SGOT) 53 U/L (15-37) Alanine Aminotransferase (ALT/SGPT) 56 U/L (12-78) Alkaline Phosphatase 84 U/L (45-117) Troponin I < 0.015 ng/ml (0-0.045) Pro-B-Type Natriuretic Peptide 187 pg/ml (0-1800) Total Protein 7.6 gm/dl (6.4-8.2) Albumin 3.5 gm/dl (3.4-5.0) Lipase 146 U/L (73-393) Influenza Type A Antigen Neg for Influ A (NEG) Influenza Type B Antigen Neg for Influ B (NEG) Laboratory results reviewed by me Medications Administered Medications (Trade) Dose Ordered Sig/Ashtyn Route Start Time Stop Time Status Last Admin Dose Admin Sodium Chloride 1,000 ml @ 999 mls/hr Q1H1M STAT IV 06/05/17 07:41 06/05/17 08:41 DC 06/05/17 08:26 999 MLS/HR Albuterol/ Ipratropium (Duoneb) 3 ml NOW STAT INH 06/05/17 07:41 06/05/17 07:51 DC 06/05/17 08:25 3 ML Sodium Chloride ([place] Nasal [place]) 2 sprays NOW ONCE NA 06/05/17 07:45 06/05/17 07:51 DC 06/05/17 08:25 2 SPRAYS Sodium Chloride 1,000 ml @ 999 mls/hr Q1H1M STAT IV 06/05/17 08:38 06/05/17 09:38 DC 06/05/17 09:26 999 MLS/HR Albuterol (Ventolin Hfa Inhaler) 2 puffs NOW ONCE INH 06/05/17 09:45 06/05/17 09:46 DC 06/05/17 09:52 2 PUFFS Oseltamivir Phosphate (Tamiflu Cap) 75 mg NOW STAT PO 06/05/17 09:35 06/05/17 09:38 DC 06/05/17 09:51 75 MG ECG Indication: other (cough) Rate (beats per minute): 99 Rhythm: normal sinus Findings: no acute ischemic change, other (normal axis) Change: Patients electrocardiogram as interpreted by me. ED Course 0735: The patient was evaluated in room B7. A complete history and physical exam was performed. 0741: Ordered Duoneb 3ml INH and sodium Chloride 1000ml @ 999mls/hr IV. 0745: Ordered Sodium Chloride 2 sprays NA. 0838: Ordered Sodium Chloride 1000ml @ 999 mls/hr IV. 0935: Ordered Tamiflu Cap 75mg PO. 0945: Ordered Albuterol 2 puffs INH. 0952: I reevaluated the patient. Discussed results and discharge instructions: She verbalized understanding and agreement. The patient is ready for discharge. Medical Decision I reviewed the patient's past medical history, medications, and the nursing notes as described above. The patient's presentation and history were concerning for URI, viral illness, influenza, pneumonia, bronchitis, pericarditis, myocarditis, gastroenteritis, and dehydration. The patient is a 82-year-old woman who presents emergency Department with cough congestion, body aches which have progressed over the past week per history of present illness. On arrival the patient is uncomfortable but no acute distress , AFVSS. Lungs with scant scattered wheeze but otherwise clear. Patient appears clinically dry. Labs unremarkable including WBC within normal limits. Chest x-ray negative for pneumonia. Influenza negative. Patient feeling improved after IV fluid hydration, nebs, saline nasal spray. While the patient' s flu screen was negative given her age and prevalence of influenza in the community will treat empirically with Tamiflu. Findings and plan for follow-up reviewed with patient. Patient agreeable and d/c'd per discharge instructions. Impression Primary Impression: Viral respiratory illness Scribe Attestation The scribe's documentation has been prepared under my direction and personally reviewed by me in its entirety. I confirm that the note above accurately reflects all work, treatment, procedures, and medical decision making performed by me. Departure Information Dispostion Home / Self-Care Prescriptions Oseltamivir Phosphate (Tamiflu) 75 Mg Cap 75 MG PO BID, #10 CAP Prov: Milo Hoskins M.D. 06/05/17 Referrals Antonio Peterson M.D. (PCP) Forms HOME CARE DOCUMENTATION FORM, IMPORTANT VISIT INFORMATION Patient Instructions ED Flu, ED Viral Syndrome, My [facility] Additional Instructions Please follow up with your primary care physician in the next 1-3 days for re- evaluation. You likely have a viral respiratory infection, which may be flu (although your screen was negative today). Otherwise, your exam, EKG, chest xray, and lab results did not show signs of an emergent condition at this time. Acetaminophen or ibuprofen for pain and fevers as needed. Tamiflu as directed. Albuterol inhaler 2 puffs every 4 hours as needed for cough. Saline nasal spray to help loosen mucus. [id number] Mucinex as needed to help thin mucus. Drink plenty of fluids to ensure hydration. Return to the emergency department for worsening symptoms as described in the accompanying instructions.
[2017-06-05 08:17] LABS: BASO % 0.6 %; BASO ABS # 0.03 K/uL (0-0.2); EOS % 3.7 %; EOS ABS # 0.19 K/uL (0-0.5); HEMATOCRIT 33.3 % (37-47); HEMOGLOBIN 10.8 g/dL (12.0-16.0); IG# 0.03 K/uL (0.00-0.02); LYMPH % 16.9 %; LYMPH ABS # 0.86 K/uL (1.2-3.4); MEAN CELL VOLUME 94.9 fL (80-100); MEAN CORPUSCULAR HEMOGLOBIN 30.8 pg (25-34); MEAN CORPUSCULAR HGB CONC 32.4 g/dl (32-36); MONO % 16.7 %; MONO ABS # 0.85 K/uL (0.11-0.59); NEUT % 61.5 %; NEUT ABS # 3.14 K/uL (1.4-6.5); PLATELET COUNT 225 K/uL (130-400); RED CELL DISTRIBUTION WIDTH CV 13.8 % (11.5-14.5); RED CELL DISTRIBUTION WIDTH SD 47.7 fL (36.4-46.3)
[2017-06-05 08:18] VITALS: O2SAT 94
--- NOTE | 2017-06-05 08:18 | DIAGNOSTIC IMAGING REPORT ---
CHEST ONE VIEW PORTABLE CLINICAL HISTORY: 82 years-old Female presenting with CHEST PAIN. TECHNIQUE: Portable upright AP view of the chest was obtained. COMPARISON: 11/09/2016. FINDINGS: Atherosclerosis of the aortic arch. Cardiac silhouette normal in size. Persistent nodularity at the right paramediastinal lung base, which may correlate with the small mediastinal lymph nodes adjacent to the IVC on prior CT from 02/13/2014. Lungs and pleural spaces otherwise clear. Degenerative changes of the thoracic spine. Upper abdomen normal. IMPRESSION: 1. No acute cardiopulmonary disease. Electronically signed by: Diego Keene M.D. 06/05/2017 8:17 AM Dictated Date/Time: 06/05/2017 8:15 AM
[2017-06-05 08:31] LABS: ALBUMIN 3.5 gm/dl (3.4-5.0); ALT/SGPT 56 U/L (12-78); BLOOD UREA NITROGEN 9 mg/dl (7-18); CALCIUM 8.4 mg/dl (8.5-10.1); CARBON DIOXIDE 26 mmol/L (21-32); CREATININE 0.73 mg/dl (0.60-1.20); GLUCOSE 171 mg/dl (70-99); LIPASE 146 U/L (73-393); POTASSIUM 3.4 mmol/L (3.5-5.1); SODIUM 134 mmol/L (136-145)
[2017-06-05 08:36] LABS: ALKALINE PHOSPHATASE 84 U/L (45-117); AST/SGOT 53 U/L (15-37); TOTAL PROTEIN 7.6 gm/dl (6.4-8.2)
[2017-06-05] MEDS ORDERED: HYZ/10015 PO (08:38)
[2017-06-05] MEDS ORDERED: ASPI81TA28 PO (08:38)
[2017-06-05] MEDS ORDERED: CHOL20007 PO (08:38)
[2017-06-05 09:01] LABS: INFLUENZA B ANTIGEN Neg for Influ B (NEG)
[2017-06-05] MEDS ORDERED: OSELTAMIVIR PHOSPHATE 75 MG CAP PO STA (09:35)
[2017-06-05] MEDS ORDERED: OSEL75CA23 PO (09:41)
[2017-06-05] MEDS ORDERED: ALBUTEROL HFA 8 GM INHALER INH ONE (09:45)
[2017-06-05 10:34] VITALS: BP 157/87; PULSE 98; O2SAT 97
== END 2017-06-05 10:35 | disposition home or self-care (01) ==
LOC: C.EDB 07:31
DX: B34.9 Viral infection, unspecified (principal); Z79.82 Long term (current) use of aspirin

== ENCOUNTER → 2017-12-07 | Day surgery (SDC) | payer OTHER ==
[2017-11-28 11:13] VITALS: BMI 29.0
[~2017-12-07] VITALS: Ht 172.7 cm; Wt 85.5 kg
[~2017-12-07] MED LIST changes: -ASPEC325 PO; +ASPI81TA28 PO; -CHOL1000 PO; +CHOL20007 PO; +GLC/500 PO; -HYZ/50125 PO; +LIDOCAINE HCL 2% 2 ML VIAL (20MG/ML) ONE; +LOSARTAN HCTZ PO; +PROPOFOL IV EMULSION 10 MG/ML 20 ML VIAL ONE; -RXC5 PO
[2017-12-07 13:30] VITALS: Ht 172.7 cm; Wt 85.5 kg
--- NOTE | 2017-12-07 14:09 | Endo History and Physical ---
History & Physical Date of Service: Dec 07, 2017. Chief Complaint: HX POLYPS Referring Physician: DR. LUCAS History of Present Illness For colonoscopy Past Surgical History Hx Cardiac Surgery: No Hx Internal Defibrillator: No Hx Pacemaker: No Hx Abdominal Surgery: Yes (HYSTERECTOMY, ) Hx Post-Op Nausea and Vomiting: No Hx Cancer Surgery: Yes (MELANOMA REMOVED X2,SQUAMOUS CEEL EXCISION) Hx Thoracic Surgery: No Hx Orthopedic: Yes (L TKA) Hx Urinary Tract Surgery: No Family History Polyp Social History Smoking Status: Never Smoker Hx Substance Use: No Hx Alcohol Use: No Allergies Coded Allergies: Cyclobenzaprine (Unverified Allergy, Severe, HALLUCINATIONS, 12/07/17) Metoprolol (Verified Allergy, Intermediate, HIVES, 12/07/17) C Latex1 -Allergic Contact Dermititis (Verified Allergy, Unknown, ITCHING, ) Lisinopril (Verified Allergy, Unknown, COUGH, 12/07/17) POLLEN (Verified Allergy, Unknown, HAYFEVER, 12/07/17) Current Medications Reported Home Medications Medications Dose Route/Sig Max Daily Dose Days Date Category Dose Instructions Glucophage (Metformin Hcl) 500 Mg Tab 500 Mg PO QPM 11/28/17 Reported [Losartan Hctz] 1 Tab PO QAM 11/28/17 Reported 300/12.5 MG Vitamin D3 (Cholecalciferol) 2,000 Unit Tab 5,000 Units PO QPM 06/05/17 Reported Aspirin Ec (Aspirin) 81 Mg Tab 81 Mg PO DAILY 06/05/17 Reported PER PT STOPPED TAKING ON HER OWN PAST COUPLE WEEKS Levothyroxine Sodium 125 Mcg Tab 125 Mcg PO QAM 90 11/09/16 Reported Vital Signs Weight (Kilograms): 85.45 Height (Feet): 5 Height (Inches): 8 Physical Exam General Appearance: WD/WN Respiratory/Chest: Respiratory effort: no dyspnea Cardiovascular: Heart Auscultation: RRR Abdomen: Inspection & Palpation: soft Assessment and Plan Hx polyps for colonoscopy
--- NOTE | 2017-12-07 15:03 | Discharge Instructions ---
Endoscopy Patient Instructions Date / Procedure(s) Performed Dec 07, 2017. Colonoscopy Allergy Information Coded Allergies: Cyclobenzaprine (Unverified Allergy, Severe, HALLUCINATIONS, 12/07/17) Metoprolol (Verified Allergy, Intermediate, HIVES, 12/07/17) [facility] [place] Latex1 -Allergic Contact Dermititis (Verified Allergy, Unknown, ITCHING, ) Lisinopril (Verified Allergy, Unknown, COUGH, 12/07/17) POLLEN (Verified Allergy, Unknown, HAYFEVER, 12/07/17) Discharge Date / Findings Dec 07, 2017. polyps, diverticulosis Medication Instructions Stopped Medication(s): STOPPED 3 WEEKS AGO Restart Stopped Medication(s): resume meds Reported Home Medications Medications Dose Route/Sig Max Daily Dose Days Date Category Dose Instructions Glucophage (Metformin Hcl) 500 Mg Tab 500 Mg PO QPM 11/28/17 Reported [Losartan Hctz] 1 Tab PO QAM 11/28/17 Reported 300/12.5 MG Vitamin D3 (Cholecalciferol) 2,000 Unit Tab 5,000 Units PO QPM 06/05/17 Reported Aspirin Ec (Aspirin) 81 Mg Tab 81 Mg PO DAILY 06/05/17 Reported PER PT STOPPED TAKING ON HER OWN PAST COUPLE WEEKS Levothyroxine Sodium 125 Mcg Tab 125 Mcg PO QAM 90 11/09/16 Reported Provider Instructions Activity Restrictions - No exercising or heavy lifting for 24 hours. - Do not drink alcohol the day of the procedure. - Do not drive a car or operate machinery until the day after the procedure. - Do not make any important decisions or sign important papers in 24 hours after the procedure. Following Day: - Return to full activity which may include returning to work/school. Diet Start your diet with liquids and light foods (jello, soup, juice, toast). Then eat your usual diet if not nauseated. Treatment For Common After Affects For mild abdominal pain, bloating, or excessive gas: - Rest - Eat lightly - Lie on right side Follow-Up Information Follow-up with DR. LUCAS as scheduled Anesthesia Information What You Should Know You have had a procedure that required some medicine to reduce anxiety and discomfort. This treatment is called moderate sedation. After receiving the treatment, you may be sleepy, but you will be able to breathe on your own. The effects of the treatment may last for several hours. Follow these instructions along with Activity/Diet recommendations noted above: * Do NOT do anything where dizziness or clumsiness would be dangerous. * Rest quietly at home today, then you can be up and about tomorrow. * Have a responsible person stay with you the rest of today. * You may have had an I.V. today. If so, you may take the dressing off later today. Recommendations Call your doctor if: * Trouble breathing * Continuous vomiting for more than 24 hours * Temperature above 101 degrees * Severe abdominal pain or bloating * Pain not relieved by pain medicine ordered * There is increased drainage or redness from any incision * A large amount of rectal bleeding greater than 2-3 tablespoons. (If you had a polyp/s removed or have hemorrhoids, a small amount of blood - from the rectum is to be expected.) * You have any unanswered questions or concerns. IN THE EVENT OF A SERIOUS EMERGENCY, GO TO THE NEAREST EMERGENCY ROOM Your discharge instructions were prepared by provider Evelio Hartman. Patient Instructions Signature Page Marcelina Elizondo Patient (or Guardian) Signature/Date: I have read and understand the instructions given to me by my caregivers. Caregiver/RN/Doctor Signature/Date: The above-named patient and/or guardian has received patient instructions on this date. + Original Patient Signature Page (only) stays with chart. Please make copy for patient.
--- NOTE | 2017-12-07 15:16 | Anesthesiology Progress Note ---
Anesthesia Post Op Note Date & Time Dec 07, 2017 at 15:15 Vital Signs Vital Signs Past 12 Hours Date Time Temp Pulse Resp B/P (MAP) Pulse Ox O2 Delivery O2 Flow Rate FiO2 12/07/17 14:11 36.9 77 18 147/77 (100) 95 Room Air Notes Mental Status: alert / awake / arousable, participated in evaluation Pt Amnestic to Procedure: Yes Nausea / Vomiting: adequately controlled Pain: adequately controlled Airway Patency, RR, SpO2: stable & adequate BP & HR: stable & adequate Hydration State: stable & adequate Anesthetic Complications: no major complications apparent
--- NOTE | 2017-12-07 15:16 | GI REPORT ---
Patient Name: Marcelina Elizondo Procedure Date: 12/07/2017 2:00 PM Date of : 1935 Admit Type: Outpatient Age: 82 Gender: Female Attending MD: Evelio Hartman MD Procedure: Colonoscopy Providers: Evelio Hartman MD Referring MD: Antonio Peterson Indications: Personal history of colonic polyps Medicines: Propofol total dose 280 mg IV, Lidocaine 40 mg IV Complications: No immediate complications. Estimated Blood Loss: Estimated blood loss was minimal. Procedure: Pre-Anesthesia Assessment: - Prior to the procedure, a History and Physical was performed, and patient medications, allergies and sensitivities were reviewed. The patient's tolerance of previous anesthesia was reviewed. - The risks and benefits of the procedure and the sedation options and risks were discussed with the patient. All questions were answered and informed consent was obtained. After I obtained informed consent, the scope was passed under direct vision. Throughout the procedure, the patient's blood pressure, pulse, and oxygen saturations were monitored continuously. The Scope was introduced through the anus and advanced to the cecum, identified by appendiceal orifice and ileocecal valve. The colonoscopy was somewhat difficult due to significant looping. Successful completion of the procedure was aided by applying abdominal pressure. The patient tolerated the procedure well. The quality of the bowel preparation was good. Findings: Multiple diverticula were found in the sigmoid colon. A 5 mm polyp was found in the cecum. The polyp was sessile. The polyp was removed with a cold biopsy forceps. Resection and retrieval were complete. Estimated blood loss was minimal. Two sessile polyps were found in the proximal ascending colon. The polyps were 4 to 5 mm in size. These polyps were removed with a cold snare. Resection and retrieval were complete. Estimated blood loss was minimal. Two sessile polyps were found in the hepatic flexure. The polyps were 3 to 4 mm in size. These polyps were removed with a hot snare. Resection and retrieval were complete. Estimated blood loss: none. A 4 mm polyp was found in the recto-sigmoid colon. The polyp was sessile. The polyp was removed with a cold snare. Resection and retrieval were complete. Estimated blood loss was minimal. A 5 mm polyp was found in the transverse colon. The polyp was sessile. The polyp was removed with a cold snare. Resection and retrieval were complete. Estimated blood loss was minimal. A 4 mm polyp was found in the descending colon. The polyp was sessile. The polyp was removed with a cold snare. Resection and retrieval were complete. Estimated blood loss was minimal. Impression: - Diverticulosis in the sigmoid colon. - One 5 mm polyp in the cecum, removed with a cold biopsy forceps. Resected and retrieved. - Two 4 to 5 mm polyps in the proximal ascending colon, removed with a cold snare. Resected and retrieved. - Two 3 to 4 mm polyps at the hepatic flexure, removed with a hot snare. Resected and retrieved. - One 4 mm polyp at the recto-sigmoid colon, removed with a cold snare. Resected and retrieved. - One 5 mm polyp in the transverse colon, removed with a cold snare. Resected and retrieved. - One 4 mm polyp in the descending colon, removed with a cold snare. Resected and retrieved. Recommendation: - Discharge patient to home (ambulatory). - Continue present medications. - Await pathology results. - Return to primary care physician PRN. Evelio Hartman M.D. Evelio Hartman MD 12/07/2017 3:15:53 PM This report has been signed electronically. Note Initiated On: 12/07/2017 2:00 PM Number of Addenda: 0 I attest to the content of the Intraoperative Record and orders documented therein, exceptions below {[id number]}
[2017-12-07 15:39] VITALS: BP 146/82; PULSE 78; O2SAT 99
== END | disposition home or self-care (01) ==
LOC: C.GI 12:50
PROVIDERS: ATTEND Internal Medicine Gastroenterology
DX: Z12.11 Encounter for screening for malignant neoplasm of colon (principal); D12.0 Benign neoplasm of cecum; D12.2 Benign neoplasm of ascending colon; D12.5 Benign neoplasm of sigmoid colon; D12.3 Benign neoplasm of transverse colon; D12.4 Benign neoplasm of descending colon; K63.5 Polyp of colon; K57.30 Diverticulosis of large intestine without perforation or abscess without bleeding; Z86.010 Personal history of colon polyps; Z83.71 Family history of colonic polyps; I10 Essential (primary) hypertension; K74.60 Unspecified cirrhosis of liver; M19.90 Unspecified osteoarthritis, unspecified site; E11.9 Type 2 diabetes mellitus without complications; E03.9 Hypothyroidism, unspecified; Z88.8 Allergy status to other drugs, medicaments and biological substances; Z91.040 Latex allergy status; Z79.84 Long term (current) use of oral hypoglycemic drugs; Z79.82 Long term (current) use of aspirin

== ENCOUNTER → 2017-12-22 | Day surgery (SDC) | payer OTHER ==
[2017-12-15 15:01] VITALS: Ht 171.5 cm; Wt 85.5 kg
[~2017-12-22] VITALS: Ht 171.5 cm; Wt 85.5 kg
[~2017-12-22] MED LIST changes: -ASPI81TA28 PO
--- NOTE | 2017-12-22 13:53 | Endo History and Physical ---
History & Physical Date of Service: Dec 22, 2017. Chief Complaint: Anemia Referring Physician: Nicholas History of Present Illness For EGD Past Surgical History Hx Cardiac Surgery: No Hx Internal Defibrillator: No Hx Pacemaker: No Hx Abdominal Surgery: Yes (HYSTERECTOMY, ) Hx of Implantable Prosthesis: No Hx Post-Op Nausea and Vomiting: No Hx Cancer Surgery: Yes (MELANOMA REMOVED X2,SQUAMOUS CELL EXCISION) Hx Thoracic Surgery: No Hx Orthopedic: Yes (L TKA) Hx Urinary Tract Surgery: No Family History Polyp Social History Smoking Status: Never Smoker Hx Substance Use: No Hx Alcohol Use: No Allergies Coded Allergies: Cyclobenzaprine (Unverified Allergy, Severe, HALLUCINATIONS, 12/15/17) Metoprolol (Verified Allergy, Intermediate, HIVES, 12/15/17) C Latex1 -Allergic Contact Dermititis (Verified Allergy, Unknown, ITCHING, ) Lisinopril (Verified Allergy, Unknown, COUGH, 12/15/17) POLLEN (Verified Allergy, Unknown, HAYFEVER, 12/15/17) Current Medications Reported Home Medications Medications Dose Route/Sig Max Daily Dose Days Date Category Dose Instructions Glucophage (Metformin Hcl) 500 Mg Tab 500 Mg PO QPM 11/28/17 Reported [Losartan Hctz] 1 Tab PO QAM 11/28/17 Reported 300/12.5 MG Vitamin D3 (Cholecalciferol) 2,000 Unit Tab 5,000 Units PO QPM 06/05/17 Reported Levothyroxine Sodium 125 Mcg Tab 125 Mcg PO QAM 90 11/09/16 Reported Vital Signs Weight (Kilograms): 85.45 Height (Feet): 5 Height (Inches): 7.5 Date Time Temp Pulse Resp B/P (MAP) Pulse Ox O2 Delivery O2 Flow Rate FiO2 12/22/17 13:25 36.6 77 18 113/69 (84) 98 Room Air Physical Exam General Appearance: WD/WN Respiratory/Chest: Respiratory effort: no dyspnea Cardiovascular: Heart Auscultation: RRR Abdomen: Inspection & Palpation: soft Assessment and Plan Anemia for EGD
--- NOTE | 2017-12-22 14:17 | Discharge Instructions ---
Endoscopy Patient Instructions Date / Procedure(s) Performed Dec 22, 2017. EGD Allergy Information Coded Allergies: Cyclobenzaprine (Unverified Allergy, Severe, HALLUCINATIONS, 12/15/17) Metoprolol (Verified Allergy, Intermediate, HIVES, 12/15/17) [facility] [place] Latex1 -Allergic Contact Dermititis (Verified Allergy, Unknown, ITCHING, ) Lisinopril (Verified Allergy, Unknown, COUGH, 12/15/17) POLLEN (Verified Allergy, Unknown, HAYFEVER, 12/15/17) Discharge Date / Findings Dec 22, 2017. Genoveva, Schatzki ring, duodenitis Medication Instructions Restart Stopped Medication(s): resume meds Reported Home Medications Medications Dose Route/Sig Max Daily Dose Days Date Category Dose Instructions Glucophage (Metformin Hcl) 500 Mg Tab 500 Mg PO QPM 11/28/17 Reported [Losartan Hctz] 1 Tab PO QAM 11/28/17 Reported 300/12.5 MG Vitamin D3 (Cholecalciferol) 2,000 Unit Tab 5,000 Units PO QPM 06/05/17 Reported Levothyroxine Sodium 125 Mcg Tab 125 Mcg PO QAM 90 11/09/16 Reported Provider Instructions Activity Restrictions - No exercising or heavy lifting for 24 hours. - Do not drink alcohol the day of the procedure. - Do not drive a car or operate machinery until the day after the procedure. - Do not make any important decisions or sign important papers in 24 hours after the procedure. Following Day: - Return to full activity which may include returning to work/school. Diet Start your diet with liquids and light foods (jello, soup, juice, toast). Then eat your usual diet if not nauseated. Treatment For Common After Affects For mild abdominal pain, bloating, or excessive gas: - Rest - Eat lightly - Lie on right side Begin Diflucan 100 mg x10 days Follow-Up Information Follow-up with Nicholas as scheduled Anesthesia Information What You Should Know You have had a procedure that required some medicine to reduce anxiety and discomfort. This treatment is called moderate sedation. After receiving the treatment, you may be sleepy, but you will be able to breathe on your own. The effects of the treatment may last for several hours. Follow these instructions along with Activity/Diet recommendations noted above: * Do NOT do anything where dizziness or clumsiness would be dangerous. * Rest quietly at home today, then you can be up and about tomorrow. * Have a responsible person stay with you the rest of today. * You may have had an I.V. today. If so, you may take the dressing off later today. Recommendations Call your doctor if: * Trouble breathing * Continuous vomiting for more than 24 hours * Temperature above 101 degrees * Severe abdominal pain or bloating * Pain not relieved by pain medicine ordered * There is increased drainage or redness from any incision * A large amount of rectal bleeding greater than 2-3 tablespoons. (If you had a polyp/s removed or have hemorrhoids, a small amount of blood - from the rectum is to be expected.) * You have any unanswered questions or concerns. IN THE EVENT OF A SERIOUS EMERGENCY, GO TO THE NEAREST EMERGENCY ROOM Your discharge instructions were prepared by provider Evelio Hartman. Patient Instructions Signature Page Marcelina Elizondo Patient (or Guardian) Signature/Date: I have read and understand the instructions given to me by my caregivers. Caregiver/RN/Doctor Signature/Date: The above-named patient and/or guardian has received patient instructions on this date. + Original Patient Signature Page (only) stays with chart. Please make copy for patient.
--- NOTE | 2017-12-22 14:22 | GI REPORT ---
Patient Name: Marcelina Elizondo Procedure Date: 12/22/2017 1:51 PM Date of : 1935 Admit Type: Outpatient Age: 82 Gender: Female Attending MD: Evelio Hartman MD Procedure: Upper GI endoscopy Providers: Evelio Hartman MD Referring MD: Antonio Peterson Indications: Iron deficiency anemia Medicines: Propofol total dose 200 mg IV, Lidocaine 40 mg IV Complications: No immediate complications. Estimated Blood Loss: Estimated blood loss was minimal. Procedure: Pre-Anesthesia Assessment: - Prior to the procedure, a History and Physical was performed, and patient medications, allergies and sensitivities were reviewed. The patient's tolerance of previous anesthesia was reviewed. - The risks and benefits of the procedure and the sedation options and risks were discussed with the patient. All questions were answered and informed consent was obtained. After obtaining informed consent, the endoscope was passed under direct vision. Throughout the procedure, the patient's blood pressure, pulse, and oxygen saturations were monitored continuously. The scope was introduced through the mouth, and advanced to the second part of duodenum. The upper GI endoscopy was accomplished without difficulty. The patient tolerated the procedure fairly well. Findings: Patchy mildly erythematous mucosa without active bleeding and with no stigmata of bleeding was found in the second portion of the duodenum. Biopsies were taken with a cold forceps for histology. Estimated blood loss was minimal. The entire examined stomach was normal. The Z-line was regular and was found 40 cm from the incisors. A non-obstructing Schatzki ring (acquired) was found at the gastroesophageal junction. [Grade] esophagitis [Bleeding] was found [cm from incisors]. Cells for cytology were obtained by brushing. Estimated blood loss: none. Impression: - Erythematous duodenopathy. Biopsied. - Normal stomach. - Z-line regular, 40 cm from the incisors. - Non-obstructing Schatzki ring. - [Grade] candidiasis esophagitis. Cells for cytology obtained. Recommendation: - Discharge patient to home (ambulatory). - Diflucan (fluconazole) 100 mg PO daily for 10 days. - Return to primary care physician PRN. Evelio Hartman M.D. Evelio Hartman MD 12/22/2017 2:21:48 PM This report has been signed electronically. Note Initiated On: 12/22/2017 1:51 PM Number of Addenda: 0 I attest to the content of the Intraoperative Record and orders documented therein, exceptions below {[id number]}
--- NOTE | 2017-12-22 14:45 | Anesthesiology Progress Note ---
Anesthesia Post Op Note Date & Time Dec 22, 2017 at 14:45 Vital Signs Pain Intensity: 0 Vital Signs Past 12 Hours Date Time Temp Pulse Resp B/P (MAP) Pulse Ox O2 Delivery O2 Flow Rate FiO2 12/22/17 14:36 72 18 129/68 (88) 97 Room Air 12/22/17 14:21 74 16 114/65 (81) 97 Room Air 12/22/17 13:25 36.6 77 18 113/69 (84) 98 Room Air Notes Mental Status: alert / awake / arousable, participated in evaluation Pt Amnestic to Procedure: Yes Nausea / Vomiting: adequately controlled Pain: adequately controlled Airway Patency, RR, SpO2: stable & adequate BP & HR: stable & adequate Hydration State: stable & adequate Anesthetic Complications: no major complications apparent
[2017-12-22 14:51] VITALS: BP 128/75; PULSE 70; O2SAT 96
== END | disposition home or self-care (01) ==
LOC: C.GI 12:58
PROVIDERS: ATTEND Internal Medicine Gastroenterology
DX: D50.9 Iron deficiency anemia, unspecified (principal); B37.81 Candidal esophagitis; I10 Essential (primary) hypertension; K22.2 Esophageal obstruction; K29.80 Duodenitis without bleeding; E11.9 Type 2 diabetes mellitus without complications; Z90.710 Acquired absence of both cervix and uterus; Z85.828 Personal history of other malignant neoplasm of skin; Z85.820 Personal history of malignant melanoma of skin; Z88.8 Allergy status to other drugs, medicaments and biological substances; Z91.040 Latex allergy status